=== PATIENT | female | born 1990 | race Caucasian/White ===

== ENCOUNTER → 2018-09-23 | Outpatient (CLI) | payer BC | LOC: FIMAGING 07:28 | PROVIDERS: ATTEND Advanced Practice Midwife | DX: Z34.02 Encounter for supervision of normal first pregnancy, second trimester (principal); Z3A.20 20 weeks gestation of pregnancy ==

== ENCOUNTER 2019-01-14 12:47 | Observation (INO) | payer BC ==
--- NOTE | 2019-01-14 13:51 | PDGENHP ---
History and Physical History and Physical: Care: [facility] HPI: Rose Bell is a [id number] with IUP @ 36-5 weeks that [facility] due to elevated BP's and elevated P:C ratio. EDC: 02/05/2019 which is based on LMP: 05/01/18 which is known and consistent with Ultrasound at 10 weeks. Her is complicated by: BMI 32, Rh negative, pre eclampsia Review of Systems: Constitutional: Denies any fever, chills, or fatigue HEENT: denies any visual changes, difficulty swallowing, hearing loss Cardiovascular: Denies any chest pain, palpitations, + lower leg swelling Respiratory: denies any cough, wheezing, or shortness of breathe GI: Denies any nausea, vomiting, diarrhea, constipation : denies any dysuria, urgency, frequency, vaginal bleeding Musculoskeletal: denies any muscle or bone pain Skin: denies any rashes Neuro: denies any headache, seizures, lightheadedness, dizziness, or loss of consciousness Psychiatric: denies any depression, anxiety, or SI/HI thoughts HISTORY: Previous OB history: G1 Past medical history: BMI 32, blood transfusion as baby Past surgical history: 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 , Sathya. 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 Family history: Not relevant Medications: PNV Allergies (list reaction): NKDA LABS: Rh: AB- ABS: Neg Rubella: Immune HbsAg: NR HIV: NR VDRL: NR 1hr: 83 GC: Neg Chlamydia: Neg Pap: Normal GBS: negative BMI: (prepreg) 32 PHYSICAL EXAM: Constitutional: WN, A&Ox3 HEENT: normocephalic atraumatic, supple Skin: Warm, dry, intact Heart: RRR, no murmur Chest: CTA-B Abdomen: Soft, nontender, gravid SVE: deferred Extremities: 2+ edema, negative homans sign Neuro: grossly normal Psych: normal affect assessment: FHT baseline 135 +accels, no decels, moderate variability Contractions: toco none Assessment: * [id number] with IUP@ 36-5 weeks * Pre Eclampsia without severe features * Cat 1 FHR tracing Plan: * d/c home * strict Pre Eclampsia precautions reviewed * f/u on L&D 01/16/19 for IOL * FKC and Labor prec discussed * reviewed labs and plan with Lola Linn- agrees with plan Today's visit was approximately 50 min, of which >50% of visit 40 min, was spent face to face with pt on direct counseling/coordination of care.
[2019-01-14 14:13] LABS: PLATELET COUNT 231 10^3/uL (150-400)
== END 2019-01-14 17:55 | disposition home or self-care (01) ==
LOC: FLD 12:47
PROVIDERS: ADMIT Advanced Practice Midwife; ATTEND Advanced Practice Midwife
DX: O14.93 Unspecified pre-eclampsia, third trimester (principal); Z3A.36 36 weeks gestation of pregnancy
CPT/HCPCS: 59025; 76816; G0378

== ENCOUNTER 2019-01-16 13:00 | Inpatient (IN) | payer BC ==
[2019-01-16] MEDS ORDERED: MISOPROSTOL 200 MCG TAB PR PRN (14:57)
[2019-01-16] MEDS ORDERED: LIDOCAINE 1% 300 MG/30 ML SDV SC PRN (14:57)
[2019-01-16] MEDS ORDERED: OXYTOCIN/RINGERS LACTATE 1,000 ML IV PRN (14:57)
[2019-01-16] MEDS ORDERED: IBUPROFEN 600 MG TAB PO PRN (14:57)
[2019-01-16] MEDS ORDERED: LR 1,000 ML IV PRN (14:57)
[2019-01-16] MEDS ORDERED: EPSOM SALT 454 GM TP PRN (14:57)
[2019-01-16] MEDS ORDERED: OLIVE OIL 118 ML BTL MISC PRN (14:57)
--- NOTE | 2019-01-16 15:45 | PDGENHP ---
History and Physical History and Physical: Care: [facility] HPI: Rose Bell is a [id number] with IUP @ 37-0 weeks that presents to L&D for IOL 2/2 Pre-eclampsia without severe features. EDC: 02/05/2019 which is based on LMP: 05/01/18 which is known and consistent with Ultrasound at 10 weeks. Her is complicated by: BMI 32, Rh negative, pre eclampsia Review of Systems: Constitutional: Denies any fever, chills, or fatigue HEENT: denies any visual changes, difficulty swallowing, hearing loss Cardiovascular: Denies any chest pain, palpitations, + lower leg swelling Respiratory: denies any cough, wheezing, or shortness of breathe GI: Denies any nausea, vomiting, diarrhea, constipation : denies any dysuria, urgency, frequency, vaginal bleeding Musculoskeletal: denies any muscle or bone pain Skin: denies any rashes Neuro: denies any headache, seizures, lightheadedness, dizziness, or loss of consciousness Psychiatric: denies any depression, anxiety, or SI/HI thoughts HISTORY: Previous OB history: G1 Past medical history: BMI 32, blood transfusion as baby Past surgical history: 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 , Sathya. 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 Family history: Not relevant Medications: PNV Allergies (list reaction): NKDA LABS: Rh: AB- ABS: Neg Rubella: Immune HbsAg: NR HIV: NR VDRL: NR 1hr: 83 GC: Neg Chlamydia: Neg Pap: Normal GBS: negative BMI: (prepreg) 32 PHYSICAL EXAM: Constitutional: WN, A&Ox3 HEENT: normocephalic atraumatic, supple Skin: Warm, dry, intact Heart: RRR, no murmur Chest: CTA-B Abdomen: Soft, nontender, gravid SVE: 2/50/-2 Extremities: 2+ edema, negative homans sign Neuro: grossly normal Psych: normal affect assessment: FHT baseline 135 +accels, no decels, moderate variability Contractions: toco none Assessment: * [id number] with IUP@ 37-0 weeks * Rh Negative * IOL 2/2 Pre Eclampsia without severe features * Cat 1 FHR tracing Plan: * admit to L&D * cytotec 50mcg buccal q 4 hrs * cont EFM * pain management PRN * anticipate pitocin/AROM in morning Today's visit was approximately 50 min, of which >50% of visit 40 min, was spent face to face with pt on direct counseling/coordination of care.
[2019-01-16 16:54] LABS: PLATELET COUNT 207 10^3/uL (150-400)
[2019-01-16] MEDS ORDERED: LIDOCAINE 1% 300 MG/30 ML SDV ONE (17:00)
[2019-01-16] MEDS ORDERED: TERBUTALINE SULFATE 1 MG/ML VIAL ONE (17:01)
[2019-01-16] MEDS ORDERED: AMMONIA AROMATIC 1 EACH AMP IH ONE (17:01)
[2019-01-16] MEDS ORDERED: OXYTOCIN 10 UNIT/ML VIAL ONE (17:01)
[2019-01-16] MEDS ORDERED: MISOPROSTOL 200 MCG TAB ONE (17:01)
[2019-01-16] MEDS ORDERED: OLIVE OIL 118 ML BTL MISC ONE (17:01)
[2019-01-16] MEDS: MISOPROSTOL 50 MCG CAP PO SCH ×2 (17:07→21:08)
[2019-01-16 21:19] LABS: PLATELET COUNT 237 10^3/uL (150-400)
--- NOTE | 2019-01-17 01:49 | OBPROG ---
Labor Progress Note Assessment/Plan: Assessment: 28yo with IUP@ 37-1wks IOL 2/2 Pre Eclampsia without severe features GBS Negative cat 1 FHR Tracing SROM clear @ 0032 Plan: expectant management reassess 2-4hr/PRN pain management PRN Subjective/Intrapartum Course: 01/17/19 01:46 Pt breathing through contractions. She states pain 5/10, worse since SROM. She desires hydrotherapy for pain relief at this time. FOB @ BS and supportive. She denies any headaches, visual changes, epigastric pain. Objective: 01/16/19 21:05 01/16/19 21:05 Patient ABO/Rh AB NEGATIVE 01/16/19 16:35 Uric Acid 6.9 mg/dL (2.5-6.8) H 01/16/19 21:05 Total Bilirubin 0.3 mg/dL (0.1-1.4) 01/16/19 21:05 Conjugated Bilirubin 0.1 mg/dL (0.0-0.5) 01/16/19 21:05 Unconjugated Bilirubin 0.2 mg/dL (0.0-1.1) 01/16/19 21:05 AST 30 IU/L (14-46) 01/16/19 21:05 ALT 32 IU/L (9-52) 01/16/19 21:05 Lactate Dehydrogenase 625 IU/L (313-618) H 01/16/19 21:05 - SVE Membranes: SROM Amniotic Fluid Color: Clear - Contraction Pattern Assessment Current Contraction Pattern: Regular (q 2-3) - FHR Assessment Clark FHR (bpm): 130 FHR Pattern Variability: Moderate FHR Category: 1 Oxytocin Orders Assessment - Pre-Induction/Augmentation Assessment Gestational Age: 37 week(s) and 1 day(s) ICD10 Worksheet Patient Problems: Problems Problem Status Onset BMI 32.0-32.9,adult Acute Encounter for induction of labor Acute Unspecified pre-eclampsia, unspecified trimester Acute - ICD10 Problem Qualifiers (1) Unspecified pre-eclampsia, unspecified trimester (2) Encounter for induction of labor (3) BMI 32.0-32.9,adult
--- NOTE | 2019-01-17 04:15 | OBDEL ---
Info Type: Vaginal Presentation at Delivery: Vertex L&D Analgesia/Anesthesia Type: Nitrous GBS+: No Intrapartum Medications: Generic Name Dose Route Start Last Admin Trade Name Desi PRN Reason Stop Dose Admin Misoprostol 50 mcg 01/16/19 17:00 01/16/19 21:08 Cytotec PO 07/15/19 16:59 50 mcg Q4H JOHN Administration - Hospital Course Intrapartum: 01/17/19 01:46 Pt breathing through contractions. She states pain 5/10, worse since SROM. She desires hydrotherapy for pain relief at this time. FOB @ BS and supportive. She denies any headaches, visual changes, epigastric pain. Indications for Delivery: Preeclampsia Mild Vaginal Delivery - Delivery Provider Delivery Physician/CNM: Fany Quinteros - Labor and Delivery Onset of Contractions Date: 01/17/19 Onset of Contractions Type: Induced Rupture of Membranes Date: 01/17/19 Rupture of Membranes Time: 00:32 Rupture of Membranes Type: Spontaneous Amniotic Fluid Color: Clear Dilation Complete Date: 01/17/19 Dilation Complete Time: 02:56 Placenta Delivery Date: 01/17/19 Placenta Delivery Time: 03:21 Laceration: 2nd Degree, Other (Specify) (bilateral sulcus tears, right labial) Repair: 3-0, 4-0, Vicryl, Chromic Vaginal Sponge Count Correct: Yes Vaginal Needle Count Correct: Yes Vaginal Sweep Performed: Yes EBL: 450 Delivery Comment: active labor after 2 doses of cytotec. delivered quickly on stool. - Medications Labor Augmentation/Induction Methods Used: Misoprostol Labor Augmentation/Induction Indication: Other (Specify) (pre eclampsia) Data MARINA: 02/05/19 Gestational Age: 37 week(s) and 2 day(s) Clark Delivery Date: 01/17/19 Delivery Time: 03:15 Sex of : Female Score (1 Min): 8 Score (5 Min): 9 ICD10 Worksheet Patient Problems: Problems Problem Status Onset BMI 32.0-32.9,adult Acute Encounter for induction of labor Acute Laceration of labia minora Acute Laceration of vaginal wall or sulcus without perineal laceration during delivery Acute (spontaneous vaginal delivery) Acute Second degree perineal laceration during delivery Acute Unspecified pre-eclampsia, unspecified trimester Acute - ICD10 Problem Qualifiers (1) Unspecified pre-eclampsia, unspecified trimester (2) Encounter for induction of labor (3) BMI 32.0-32.9,adult (4) (spontaneous vaginal delivery) (5) Second degree perineal laceration during delivery (6) Laceration of vaginal wall or sulcus without perineal laceration during delivery (7) Laceration of labia minora
[2019-01-17] MEDS ORDERED: HYDROCORTISONE 0.5% CREAM TP PRN (04:22)
[2019-01-17] MEDS ORDERED: SIMETHICONE 80 MG TAB CHEW PO PRN (04:22)
[2019-01-17] MEDS: DOCUSATE SODIUM 100 MG CAP PO PRN (09:11)
[2019-01-17] MEDS: ACETAMINOPHEN 325 MG TAB PO PRN ×2 (09:11→16:42)
[2019-01-17] MEDS: IBUPROFEN 600 MG TAB PO PRN ×3 (10:51→23:05)
[2019-01-17] MEDS ORDERED: MAGNESIUM SULF 4 GM/WATER 100 ML IV ONE (13:03)
[2019-01-17] MEDS ORDERED: CALCIUM GLUC 10% 1 GM/10 ML VIAL IVP PRN (13:03)
[2019-01-17] MEDS ORDERED: LIDOCAINE 2% VISCOUS 15 ML UDCUP PO PRN (13:04)
[2019-01-17] MEDS: Mag Sulf 500 ML IV SCH (14:56)
[2019-01-17] MEDS ORDERED: LIDOCAINE 2% JELLY 20 ML (UROJECT) UR ONE (15:00)
[2019-01-17 15:03] LABS: PLATELET COUNT 213 10^3/uL (150-400)
--- NOTE | 2019-01-17 20:24 | OBPP ---
Progress Note Assessment/Plan: Assessment: 28 yo ppd# 0 s/p induction for preeclampsia magnesium sulfate for severe range pressures. breast feeding Plan: 01/17/19 20:24 Subjective/ Course: 01/17/19 20:21 I was consulted this afternoon due to to elevated blood pressurs. history, labs and vitals were reviewed. patient has had several blood pressures with diastolics in the 160's. she denies headache and changes in vision and labs are normal. long discussion was had with patient and the father of her baby about recommendation for starting magnesium sulfate. patient was agreeable. magnesium was started and is well tolerated. blood pressures remain stable. she has normal lochia and is working on breast feeding. Objective: 01/17/19 14:40 01/17/19 14:40 Patient ABO/Rh AB NEGATIVE 01/16/19 16:35 Uric Acid 6.8 mg/dL (2.5-6.8) 01/17/19 14:40 Total Bilirubin 0.3 mg/dL (0.1-1.4) 01/16/19 21:05 Conjugated Bilirubin 0.1 mg/dL (0.0-0.5) 01/16/19 21:05 Unconjugated Bilirubin 0.2 mg/dL (0.0-1.1) 01/16/19 21:05 AST 34 IU/L (14-46) 01/17/19 14:40 ALT 24 IU/L (9-52) 01/17/19 14:40 Lactate Dehydrogenase 612 IU/L (313-618) 01/17/19 14:40 Temp Pulse Resp BP Pulse Ox 36.6 C 100 16 141/88 H 92 01/17/19 08:53 01/17/19 14:09 01/17/19 14:09 01/17/19 14:09 01/17/19 20:00 Uterine Position/Fundal Height: Umbilicus -3 Uterine Tone: Firm Physical Exam - Physical Exam Neck: non-tender, full range of motion, supple Respiratory: chest non-tender, lungs clear, normal breath sounds Cardiac/Chest: normal peripheral pulses, regular rate, rhythm Abdomen: normal bowel sounds, non-tender, other (fundus firm and non tender) Extremities: normal range of motion, non-tender, normal inspection, normal capillary refill, pedal edema DTR- Lower Extremities: Knee (R): 3+, Knee (L): 3+ Skin: normal color, warm/dry Neuro/Psych: no motor/sensory deficits, alert, normal mood/affect, oriented x 3
[2019-01-17] MEDS: MISOPROSTOL 50 MCG CAP PO SCH (21:02)
[2019-01-18] MEDS: Mag Sulf 500 ML IV SCH ×2 (01:02→12:04)
--- NOTE | 2019-01-18 10:53 | OBPP ---
Progress Note Assessment/Plan: Assessment: 28 yo now ppd#1 s/p - developed severe range pressures and dx of PIH yesterday afternoon. Magnesium started at 1400 yesterday. - Mag off at 1400 today - BP's have been mild range, no new sx, diuresing well. - Can eat and drink and transfer to Mom/Baby once stable off magnesium. - Likey dc home tomorrow. BF going well. - Rh neg - needs screen and RhoGam PRN. - Rubella immune. Laboratory Tests 07/15/18 01/16/19 18:10 16:35 Rubella IgG Antibody 119.00 Patient ABO/Rh AB NEGATIVE Subjective/ Course: 01/17/19 20:21 I was consulted this afternoon due to to elevated blood pressurs. history, labs and vitals were reviewed. patient has had several blood pressures with diastolics in the 160's. she denies headache and changes in vision and labs are normal. long discussion was had with patient and the father of her baby about recommendation for starting magnesium sulfate. patient was agreeable. magnesium was started and is well tolerated. blood pressures remain stable. she has normal lochia and is working on breast feeding. 01/18/19 15:39 Saw Rose this AM - at that point she was feeling pretty good. Not too many sx from the mag, just groggy. Mild menstrual cramping well controlled with orals. No new s/sx of PIH. Objective: 01/17/19 14:40 01/17/19 14:40 Patient ABO/Rh AB NEGATIVE 01/16/19 16:35 Uric Acid 6.8 mg/dL (2.5-6.8) 01/17/19 14:40 Total Bilirubin 0.3 mg/dL (0.1-1.4) 01/16/19 21:05 Conjugated Bilirubin 0.1 mg/dL (0.0-0.5) 01/16/19 21:05 Unconjugated Bilirubin 0.2 mg/dL (0.0-1.1) 01/16/19 21:05 AST 34 IU/L (14-46) 01/17/19 14:40 ALT 24 IU/L (9-52) 01/17/19 14:40 Lactate Dehydrogenase 612 IU/L (313-618) 01/17/19 14:40 Temp Pulse Resp BP Pulse Ox 36.6 C 100 16 141/88 H 91 L 01/17/19 08:53 01/17/19 14:09 01/17/19 14:09 01/17/19 14:09 01/18/19 01:10 Uterine Position/Fundal Height: Umbilicus -2 Uterine Tone: Firm
[2019-01-18] MEDS: ACETAMINOPHEN 325 MG TAB PO PRN (12:03)
[2019-01-18] MEDS: DOCUSATE SODIUM 100 MG CAP PO PRN ×2 (12:09→20:25)
[2019-01-18] MEDS: IBUPROFEN 600 MG TAB PO PRN (20:25)
[2019-01-19] MEDS: IBUPROFEN 600 MG TAB PO PRN (03:45)
[2019-01-19 10:16] VITALS: BP 138/90
--- NOTE | 2019-01-19 11:21 | OBPP ---
Progress Note Assessment/Plan: Assessment: 28 yo ppd# 2 s/p induction for preeclampsia s/p magnesium sulfate for severe range pressures. borderline blood pressures breast feeding discharge instructions and precautions 01/19/19 11:10 Subjective/ Course: 01/17/19 20:21 I was consulted this afternoon due to to elevated blood pressurs. history, labs and vitals were reviewed. patient has had several blood pressures with diastolics in the 160's. she denies headache and changes in vision and labs are normal. long discussion was had with patient and the father of her baby about recommendation for starting magnesium sulfate. patient was agreeable. magnesium was started and is well tolerated. blood pressures remain stable. she has normal lochia and is working on breast feeding. 01/18/19 15:39 Saw Rose this AM - at that point she was feeling pretty good. Not too many sx from the mag, just groggy. Mild menstrual cramping well controlled with orals. No new s/sx of PIH. 01/19/19 11:12 patient is doing well. pain is well controlled. normal lochia. denies headache and changes in vision. long discussion about blood pressure, PIH precautions. will have home visit with center nurse tomorrow and follow up early next week with blood pressure check. breast feeding is going well. ready to go home. discussed discharge precautions. Objective: 01/17/19 14:40 01/17/19 14:40 Patient ABO/Rh AB NEGATIVE 01/16/19 16:35 Uric Acid 6.8 mg/dL (2.5-6.8) 01/17/19 14:40 Total Bilirubin 0.3 mg/dL (0.1-1.4) 01/16/19 21:05 Conjugated Bilirubin 0.1 mg/dL (0.0-0.5) 01/16/19 21:05 Unconjugated Bilirubin 0.2 mg/dL (0.0-1.1) 01/16/19 21:05 AST 34 IU/L (14-46) 01/17/19 14:40 ALT 24 IU/L (9-52) 01/17/19 14:40 Lactate Dehydrogenase 612 IU/L (313-618) 01/17/19 14:40 Temp Pulse Resp BP Pulse Ox 36.6 C 95 15 138/90 H 96 01/19/19 08:00 01/19/19 08:00 01/19/19 08:00 01/19/19 08:00 01/19/19 08:00 Physical Exam - Physical Exam Neck: non-tender, full range of motion, supple Respiratory: chest non-tender, lungs clear, normal breath sounds Cardiac/Chest: normal peripheral pulses, regular rate, rhythm Abdomen: normal bowel sounds, non-tender (fudus firm and non tender) Extremities: normal range of motion, non-tender, normal inspection, normal capillary refill Skin: normal color, warm/dry Neuro/Psych: no motor/sensory deficits, alert, normal mood/affect, oriented x 3
--- NOTE | 2019-01-19 11:26 | OBGCSDC ---
General Delivery Information - General Info : 1 Para: 1 Abortions: 0 Type: Vaginal L&D Analgesia/Anesthesia Type: None Admission Date: 01/16/19 Labs: Patient ABO/Rh AB NEGATIVE 01/16/19 16:35 Hct 30.6 % (38.0-47.0) L 01/17/19 14:40 - Hospital Course Antepartum: 01/19/19 11:25 care with [facility]. developed preeclampsia at 36 5/7/ induced at 37 weeks. Intrapartum: 01/17/19 01:46 Pt breathing through contractions. She states pain 5/10, worse since SROM. She desires hydrotherapy for pain relief at this time. FOB @ BS and supportive. She denies any headaches, visual changes, epigastric pain. : 01/17/19 20:21 I was consulted this afternoon due to to elevated blood pressurs. history, labs and vitals were reviewed. patient has had several blood pressures with diastolics in the 160's. she denies headache and changes in vision and labs are normal. long discussion was had with patient and the father of her baby about recommendation for starting magnesium sulfate. patient was agreeable. magnesium was started and is well tolerated. blood pressures remain stable. she has normal lochia and is working on breast feeding. 01/18/19 15:39 Saw Rose this AM - at that point she was feeling pretty good. Not too many sx from the mag, just groggy. Mild menstrual cramping well controlled with orals. No new s/sx of PIH. 01/19/19 11:12 patient is doing well. pain is well controlled. normal lochia. denies headache and changes in vision. long discussion about blood pressure, PIH precautions. will have home visit with center nurse tomorrow and follow up early next week with blood pressure check. breast feeding is going well. ready to go home. discussed discharge precautions. Vaginal - Delivery Provider Delivery Physician/CNM: Fany Quinteros - Diagnosis Labor: Induced Rupture of Membranes Type: Spontaneous Amniotic Fluid Color: Clear Laceration: 2nd Degree, Other (Specify) (bilateral sulcus tears, right labial) Repair: 3-0, 4-0, Vicryl, Chromic - Delivery EBL: 450 Data MARINA: 02/05/19 Gestational Age: 37 week(s) and 4 day(s) Clark Delivery Date: 01/17/19 Delivery Time: 03:15 Sex of : Female Weight (gm): 3070 g Score (1 Min): 8 Score (5 Min): 9 Discharge Information - Discharge Information Condition: Good Instruction/Follow Up: One Week (with blood pressure check ), Six Weeks (post visit)
== END 2019-01-19 17:45 | disposition home or self-care (01) | DRG 807 ==
LOC: FLD 14:48 → FOB 01-18 18:02
PROVIDERS: ADMIT Advanced Practice Midwife; ATTEND Advanced Practice Midwife
PROC: 10E0XZZ Delivery of Products of Conception, External Approach (ICD-10-PCS; principal; 2019-01-17)
PROC: 0KQM0ZZ Repair Perineum Muscle, Open Approach (ICD-10-PCS; principal; 2019-01-17)
DX: O14.03 Mild to moderate pre-eclampsia, third trimester (principal); O70.1 Second degree perineal laceration during delivery; O26.893 Other specified pregnancy related conditions, third trimester; Z67.91 Unspecified blood type, Rh negative; Z3A.37 37 weeks gestation of pregnancy; Z37.0 Single live birth
CPT/HCPCS: J0610; J2590; J3105; J3475